=== PATIENT | female | born 1965 | race Two or more races ===

== ENCOUNTER 2021-10-03 01:01 | Emergency (ER) | payer SELFPAY ==
[2021-10-03] MEDS ORDERED: Acetaminophen/HYDROcodone 325-5 MG Tab PO ONE (02:10)
[2021-10-03] MEDS ORDERED: Orphenadrine 100 MG Tab.ER PO STA (02:10)
== END 2021-10-03 02:42 | disposition home or self-care (01) ==
LOC: JD.ED 01:01
DX: M62.838 Other muscle spasm (principal); G44.209 Tension-type headache, unspecified, not intractable; I10 Essential (primary) hypertension; Z86.16 Personal history of COVID-19
CPT/HCPCS: 99283; A9270